=== PATIENT | male | born 1940 | race Caucasian/White ===

== ENCOUNTER 2018-09-22 20:06 | Inpatient (IN) | payer MEDICARE, OTHER ==
[~2018-09-22] VITALS: Ht 175.3 cm; Wt 92.5 kg
[2018-09-22] MEDS ORDERED: CLOP75TA2 PO (20:34)
[2018-09-22] MEDS ORDERED: ASPI1TAB PO (20:34)
[2018-09-22] MEDS ORDERED: SPIR-10 PO (20:34)
[2018-09-22] MEDS ORDERED: TORS20TA2 PO (20:34)
[2018-09-22] MEDS ORDERED: ATOR80TA59 PO (20:34)
[2018-09-22] MEDS ORDERED: NITR0.4S14 SL (20:34)
[2018-09-22 21:32] LABS: HEMATOCRIT 40.7 % (42.0-52.0); MEAN CORPUSCULAR HEMOGLOBIN 29.7 pg (27.0-33.0); MEAN CORPUSCULAR HGB CONC 31.9 g/dl (32.0-36.5); MEAN CORPUSCULAR VOLUME 93.1 fl (80.0-96.0); PLATELET COUNT, AUTOMATED 338 10^3/uL (150-450); RED BLOOD COUNT 4.37 10^6/uL (4.30-6.10); WHITE BLOOD COUNT 9.3 10^3/uL (4.0-10.0)
[2018-09-22 21:55] LABS: BLOOD UREA NITROGEN 16 MG/DL (7-18); CALCIUM LEVEL 8.2 MG/DL (8.8-10.2); CARBON DIOXIDE LEVEL 30 MEQ/L (21-32); CHLORIDE LEVEL 99 MEQ/L (98-107); CREATININE FOR GFR 1.08 MG/DL (0.70-1.30); GLOMERULAR FILTRATION RATE > 60.0 (>42); GLUCOSE, FASTING 134 MG/DL (70-100); POTASSIUM SERUM 4.2 MEQ/L (3.5-5.1); SODIUM LEVEL 135 MEQ/L (136-145)
--- NOTE | 2018-09-22 21:55 | REPVR ---
EXAM: US Duplex Right Lower Extremity Veins, Limited EXAM DATE/TIME: 09/22/2018 9:26 PM CLINICAL HISTORY: 78 years old, male; Pain; Leg, upper; Right; Additional info: Swelling TECHNIQUE: Real-time Duplex ultrasound of the Right Lower Extremity with 2-D arce scale, color Doppler flow and spectral waveform analysis. Limited exam was focused on the right lower extremity veins. COMPARISON: No relevant prior studies available. FINDINGS: Right deep veins: Unremarkable. The common femoral, femoral, proximal profunda femoral and popliteal veins are patent without thrombus. Normal Doppler waveforms. Normal compressibility and/or augmentation response. Right superficial veins: Unremarkable. Saphenofemoral junction is patent without thrombus. Soft tissues: Unremarkable. IMPRESSION: No sonographic evidence of deep vein thrombosis. Electronically signed by: Vidal Emery On 09/22/2018 21:55:27 PM
[2018-09-22] MEDS ORDERED: NS 1,000 ML IV SCH ×2 (22:45→23:30)
[2018-09-22] MEDS ORDERED: PIPERACILLIN/TAZOBACTAM SOD 3.375 GM in D5W MINI-BAG PLUS 50 ML IV ONE (22:45)
[2018-09-22] MEDS ORDERED: NITROGLYCERIN 0.4 MG SUBL TABLET SL PRN (23:15)
[2018-09-22] MEDS ORDERED: ACETAMINOPHEN TAB 650MG DOSE (2X325MG) PO PRN (23:15)
[2018-09-22] MEDS ORDERED: PROBCAP4 PO (23:32)
--- NOTE | 2018-09-22 23:57 | HPEPDOC ---
[facility] Medical History & Physical Date of Admission Sep 22, 2018 Other Provider Dictating/admitting: Charmaine Marin M.D. Attending Physician: SHAMAR GRIMM MD History and Physical CHIEF COMPLAINT: Right lower extremity nonhealing ulcer and pain 3 weeks HISTORY OF PRESENT ILLNESS: Patient is 78-year-old man with history of hypertension, active tobacco use, CHF, seasonal allergies. Chronic venous insufficiency. Patient gives a history of having fallen over 4 weeks ago with resultant blister on his right inner thigh. However, blisters later turned into also and has remained nonhealing draining serosanguineous fluid and now he complains that the pain is unbearable with pain intensity 6-8/10. He denies any nausea, vomiting, no fever, no chills, no palpitations, no shortness of breath or chest pain, no coughing. No undue swelling of his lower extremities. No recent long distance travel. Vascular ultrasound ruled out DVT. PAST MEDICAL HISTORY: Per HPI PAST SURGICAL HISTORY: 1. Repair of fractured vertebrae. 2. Declines abdominal hernia repair. SOCIAL HISTORY: Smokes about 5-6 sticks of cigarettes per day for over 40 years. Indulges in occasional use of alcohol. FAMILY HISTORY: Father: , unknown course Mother: , unknown course Denies ischemic heart disease or diabetes in the rest of the family ALLERGIES: Please see below. REVIEW OF SYSTEMS: He denies any nausea, vomiting, no fever, no chills, no palpitations, no shortness of breath or chest pain, no coughing. No undue swelling of his lower extremities. No recent long distance travel. Other systems reviewed, -10 point review of system was done. HOME MEDICATIONS: Please see below. PHYSICAL EXAMINATION: VITAL SIGNS: Temperature 97.4, pulse 108, respiratory rate 18, blood pressure 174/64, pulse oximetry 94% on room air. GENERAL APPEARANCE: Elderly man, lying calmly in bed, not in any apparent distress. He is not pale, anicteric and afebrile HEENT: Atraumatic. Neck: Supple. LUNGS: Clear to auscultation bilaterally. CARDIOVASCULAR: S1 and 2 heard, no murmurs, rubs or gallops. ABDOMEN: Obese, soft, not tender, not distended. Bowel sounds normoactive. MUSCULOSKELETAL: Apparently within normal limits. EXTREMITIES: Chronic skin changes noted. Right thigh ulcer with escar. Ulcer measures 3cm x3cm. No pedal edema, 2+ bilateral pedal pulses noted. Range of motion to Right lower extremity reduced due to pain. NEUROLOGICAL: Awake, alert, oriented 3. PSYCHIATRIC: Normal affect LABORATORY DATA: See below. IMAGING: Vascular ultrasonogram: No DVT. MICROBIOLOGY: Please see below. ASSESSMENT: 78-year-old man with hypertension, active tobacco use, CHF comes in with 3 weeks duration of nonhealing ulcer and pain to the right inner thigh. DIAGNOSES: Right inner thigh cellulitis . PLAN: 1. I will admit this patient to medical floor with remote telemetry under care of Dr Grimm. 2. Cellulitis. Will continue IV linezolid 600 mg twice a day follow CBC. Follow blood cultures. Patient will also benefit from debridement have been examining the wound. I will place consult to vascular surgery for further surgical evaluation. 3. Patient appears a little dry. We'll give IV normal saline to run at 50 mils per hour for the next 8 hours. Follow BMP in the morning. We'll hold diuretics today and restart diuretics tomorrow. 4. Continue outpatient medications. 5. DVT prophylaxis with TEDs. 6. Further management will be per patient's clinical course. Vital Signs Vital Signs Date Time Temp Pulse Resp B/P (MAP) Pulse Ox O2 Delivery O2 Flow Rate FiO2 09/22/18 23:32 99.2 94 12 134/70 (91) 95 Room Air Laboratory Data Labs 24H Laboratory Tests 2 09/22/18 21:06: Nucleated Red Blood Cells % (auto) 0.0, Anion Gap 6L, Glomerular Filtration Rate > 60.0, Blood Urea Nitrogen 16, Creatinine 1.08, Sodium Level 135L, Potassium Level 4.2, Chloride Level 99, Carbon Dioxide Level 30, Calcium Level 8.2L CBC/BMP Laboratory Tests 09/22/18 21:06 Red Blood Count 4.37, Mean Corpuscular Volume 93.1, Mean Corpuscular Hemoglobin 29.7, Mean Corpuscular Hemoglobin Concent 31.9 L, Red Cell Distribution Width 14.2, Calcium Level 8.2 L Microbiology Microbiology 09/22/18 Blood Culture, Received Pending 09/22/18 Wound Culture, Received Pending Home Medications Scheduled Aspirin (Aspirin 81) 81 Mg Tab, 81 MG PO QPM TAKES AT 1730 Atorvastatin Calcium (Atorvastatin Calcium) 80 Mg Tab, 80 MG PO QHS TAKES AT 1730 Clopidogrel Bisulfate (Clopidogrel) 75 Mg Tab, 75 MG PO DAILY Lactobacillus Acidophilus (Probiotic) 1 Cap Cap, 1 CAP PO BID Nitroglycerin (Nitroglycerin) 0.4 Mg Sub, 0.4 MG SL NITRO Spironolactone (Spironolactone) 25 Mg Tab, 25 MG PO DAILY Torsemide (Torsemide) 20 Mg Tab, 10 MG PO DAILY Allergies Coded Allergies: No Known Drug Allergy (Unverified Allergy, Unknown, NONE, 11/13/12) VELMA LLAMAS MD Sep 22, 2018 23:46
[2018-09-23 00:35] VITALS: BP 146/76
[2018-09-23] MEDS: LINEZOLID 600 MG in APPROPRIATE DILUENT 1 EA IV SCH ×3 (01:45→21:57)
[2018-09-23 06:00] VITALS: BP 112/64
[2018-09-23 07:43] LABS: HEMATOCRIT 33.4 % (42.0-52.0); MEAN CORPUSCULAR HEMOGLOBIN 29.9 pg (27.0-33.0); MEAN CORPUSCULAR VOLUME 93.3 fl (80.0-96.0); PLATELET COUNT, AUTOMATED 290 10^3/uL (150-450); RED BLOOD COUNT 3.58 10^6/uL (4.30-6.10); WHITE BLOOD COUNT 7.8 10^3/uL (4.0-10.0)
[2018-09-23 07:48] LABS: HEMOGLOBIN 10.7 g/dl (13.5-17.5)
[2018-09-23 07:59] LABS: BLOOD UREA NITROGEN 15 MG/DL (7-18); CALCIUM LEVEL 7.7 MG/DL (8.8-10.2); CARBON DIOXIDE LEVEL 29 MEQ/L (21-32); CHLORIDE LEVEL 102 MEQ/L (98-107); CREATININE FOR GFR 0.76 MG/DL (0.70-1.30); GLOMERULAR FILTRATION RATE > 60.0 (>42); GLUCOSE, FASTING 101 MG/DL (70-100); POTASSIUM SERUM 3.9 MEQ/L (3.5-5.1); SODIUM LEVEL 138 MEQ/L (136-145)
[2018-09-23 08:02] LABS: ALBUMIN 2.4 GM/DL (3.2-5.2); BILIRUBIN,DIRECT 0.2 MG/DL (0.0-0.2); BILIRUBIN,TOTAL 0.4 MG/DL (0.2-1.0); TOTAL PROTEIN 6.2 GM/DL (6.4-8.2)
[2018-09-23] MEDS: CLOPIDOGREL 75 MG TAB PO SCH (08:45)
--- NOTE | 2018-09-23 10:45 | CR ---
DATE OF CONSULTATION: 09/23/2018 REASON FOR CONSULTATION: Hematoma right leg with pain and discomfort. HISTORY OF PRESENT ILLNESS: The patient is a 78-year-old male who had a fall 3 weeks ago. He went to [place] for treatment and essentially has had some drainage from the hematoma / blister that occurred on his right thigh over the last several days and came back in with swelling, pain, discomfort in this area. He has a followup appointment in the wound clinic but has not been scheduled for that yet. PAST MEDICAL HISTORY: His past medical history is significant for history of smoking, history of back fracture, history of hypercholesterolemia, history of constipation, history of congestive heart failure, hypertension, history of venous insufficiency, history of hyperlipidemia, history of vitamin D deficiency. MEDICATIONS: Include: - aspirin - atorvastatin - Plavix - probiotic - nitroglycerin - spirolactone - torsemide PHYSICAL EXAMINATION: Physical exam reveals 78-year-old male who looks older than stated age. HEENT is unremarkable. Neck: Supple without adenopathy. Lungs are diminished bilaterally. Heart is regular with few irregular beats. Abdomen is soft, nontender. Extremities: Right lower extremity reveals 2+ pitting edema of lower extremity. He has some mild are reactive erythema around the knee and the upper thigh. He has eschar on his medial leg that is partially avulsed. I placed some peroxide on this and a great deal of the blood / hematoma evacuated with just minimal pressure in the thigh area. IMPRESSION AND PLAN: The patient has a open wound on his right thigh. I anticipate with gentle debridement associated with peroxide should be enough to avoid significant bleeding associated with his anticoagulation. I would recommend avoiding mechanical debridement at this point, which may result in significant bleeding from the site. We may start wet to dry depending on how he does with the dressing changes over the next couple of days. Recommend continue with leg elevation, he can ambulate but otherwise would have him elevate his leg as much as possible. Anticipate that he should be able to be discharged once family is comfortable with dressing changes and his pain is under better control.
[2018-09-23] MEDS: NICOTINE 14 MG/24 HR TRANSDERMAL TD SCH (11:58)
--- NOTE | 2018-09-23 12:59 | IPNPDOC ---
Date Seen The patient was seen on 09/23/18. Progress Note SUBJECTIVE: Patient Complains of pain on his right thigh associated with his ulcer but otherwise he denies fevers chills chest pain or shortness of breath OBJECTIVE PHYSICAL EXAMINATION: VITAL SIGNS: Please see below. GENERAL: Elderly man lying in bed he does not appear to be in any acute distress HEENT:. Cranial nerves 2 through 12 are grossly intact CARDIOVASCULAR: S1 S2 regular. RESPIRATORY: Clear to auscultation bilaterally. ABDOMINAL: Bowel sounds present abdomen is soft and obese EXTREMITIES: The right medial thigh has a 5 cm dark necrotic area ulceration with mobile eschar there is some bloody discharge LABORATORY DATA, IMAGING STUDIES, MICROBIOLOGY: Please see below. DVT prophylaxis ordered?: Teds and sequentials early ambulation ASSESSMENT AND PLAN: This is a 78-year-old man with right thigh ulcer. PROBLEMS: 1. Right thigh ulcer: The patient was admitted with concern for possible superimposed cellulitic infection my suspicion for this is much lower is started on antibiotics we'll follow his cultures and narrow antibiotic spectrum and discontinue as indicated. Given the eschar suspect he would benefit from cleansing with possible debridement as such her receptive Dr. Osullivan of general surgery to evaluate the patient for wound care management as suspect the patient will benefit greatly from an outpatient follow-up with Dr. Benavidez as well which the family have already arranged. I'll provide him with by mouth pain medication and have him work with physical therapy. His wound appears to be secondary to trauma 2. Congestive heart failure: Chronic appears to be quite euvolemic at this time his home diuretics of placed on hold he didn't try some gentle hydration CONTINUE fluids as he is tolerating by mouth just fine at this time. 3. Peripheral arterial disease: He is reportedly had peripheral arterial bypass his past he is on aspirin Plavix and statin. 4. Tobacco abuse: Cessation counseling provided he has been provided with a nicotine patch DISPOSITION: Pending PT clearance pain control and general surgery consultation. VS, I&O, 24H, Fishbone Vital Signs/I&O Vital Signs Date Time Temp Pulse Resp B/P (MAP) Pulse Ox O2 Delivery O2 Flow Rate FiO2 09/23/18 06:00 97.8 78 15 112/64 (80) 96 09/22/18 23:32 Room Air I&O- Last 24 Hours up to 6 AM 09/23/18 06:00 Intake Total 475 ml Output Total 0 ml Balance 475 ml Laboratory Data 24H LABS Laboratory Tests 2 09/22/18 21:06: Nucleated Red Blood Cells % (auto) 0.0, Anion Gap 6L, Glomerular Filtration Rate > 60.0, Blood Urea Nitrogen 16, Creatinine 1.08, Sodium Level 135L, Potassium Level 4.2, Chloride Level 99, Carbon Dioxide Level 30, Calcium Level 8.2L 09/23/18 07:25: Nucleated Red Blood Cells % (auto) 0.0, Anion Gap 7L, Glomerular Filtration Rate > 60.0, Blood Urea Nitrogen 15, Creatinine 0.76, Sodium Level 138, Potassium Level 3.9, Chloride Level 102, Carbon Dioxide Level 29, Calcium Level 7.7L, Aspartate Amino Transf (AST/SGOT) 10, Alanine Aminotransferase (ALT/SGPT) 11L, Alkaline Phosphatase 81, Total Bilirubin 0.4, Direct Bilirubin 0.2, Total Protein 6.2L, Albumin 2.4L, Albumin/Globulin Ratio 0.63L CBC/BMP Laboratory Tests 09/22/18 21:06 Red Blood Count 4.37, Mean Corpuscular Volume 93.1, Mean Corpuscular Hemoglobin 29.7, Mean Corpuscular Hemoglobin Concent 31.9 L, Red Cell Distribution Width 14.2, Calcium Level 8.2 L 09/23/18 07:25 Red Blood Count 3.58 L, Mean Corpuscular Volume 93.3, Mean Corpuscular Hemoglobin 29.9, Mean Corpuscular Hemoglobin Concent 32.0, Red Cell Distribution Width 14.2, Calcium Level 7.7 L Microbiology Microbiology 09/22/18 Blood Culture, Received Pending 09/22/18 Wound Culture, Received Pending SHAMAR GRIMM MD Sep 23, 2018 12:59
[2018-09-23] MEDS ORDERED: PERCOCET 5MG/325MG TAB PO PRN ×2 (13:00)
[2018-09-23 14:00] VITALS: BP 120/71
[2018-09-23] MEDS: ATORVASTATIN 20 MG TAB PO SCH (21:56)
[2018-09-23] MEDS: ASPIRIN 81 MG ENTERIC TAB PO SCH (21:56)
[2018-09-23 22:00] VITALS: BP 121/73
[2018-09-24 06:00] VITALS: BP 120/70
[2018-09-24] MEDS: CLOPIDOGREL 75 MG TAB PO SCH (08:11)
[2018-09-24] MEDS: NICOTINE 14 MG/24 HR TRANSDERMAL TD SCH (08:13)
[2018-09-24] MEDS: LINEZOLID 600 MG in APPROPRIATE DILUENT 1 EA IV SCH ×2 (10:47→22:26)
--- NOTE | 2018-09-24 13:06 | IPNPDOC ---
Date Seen The patient was seen on 09/24/18. Progress Note SUBJECTIVE: Patient tellsme that his pain is better controlled at this time. He has no complaints, no fevers or chills. C OBJECTIVE PHYSICAL EXAMINATION: VITAL SIGNS: Please see below. GENERAL: Elderly man lying in bed he does not appear to be in any acute distress he is accompanied by his 2 daughters HEENT:. Cranial nerves 2 through 12 are grossly intact CARDIOVASCULAR: S1 S2 regular. No additional heart sounds appreciated RESPIRATORY: Clear to auscultation bilaterally. ABDOMINAL: Bowel sounds present abdomen is soft and obese EXTREMITIES: The right medial thigh has Kerlix bandage which is clean dry and intact LABORATORY DATA, IMAGING STUDIES, MICROBIOLOGY: Please see below. DVT prophylaxis ordered?: Teds and sequentials early ambulation ASSESSMENT AND PLAN: This is a 78-year-old man with right thigh ulcer. PROBLEMS: 1. Right thigh ulcer: The patient was admitted with concern for possible s uperimposed cellulitic infection my suspicion for this is much lower is started on antibiotics so far cultures are negative. General surgery help greatly appreciated dressing changes and wound cleanser recommendations have been made I suspect that the patient would benefit from home health at home and the family is learning how to do dressing changes. My plan would be to send him home tomorrow with services in follow-up with wound care on the outpatient setting for continued care 2. Congestive heart failure: Chronic appears to be quite euvolemic at this time his home diuretics of placed on hold but I feel the could be resumed upon discharge as early as tomorrow 3. Peripheral arterial disease: He is reportedly had peripheral arterial bypass his past he is on aspirin Plavix and statin. 4. Tobacco abuse: Cessation counseling provided he has been provided with a nicotine patch DISPOSITION: Pending PT clearance pain control and arrangement of home services possibly tomorrow VS, I&O, 24H, Fishbone Vital Signs/I&O Vital Signs Date Time Temp Pulse Resp B/P (MAP) Pulse Ox O2 Delivery O2 Flow Rate FiO2 09/24/18 06:00 97.6 84 16 120/70 (87) 94 09/22/18 23:32 Room Air I&O- Last 24 Hours up to 6 AM 09/24/18 06:00 Intake Total 1480 ml Output Total 0 ml Balance 1480 ml Laboratory Data Microbiology Microbiology 09/22/18 Blood Culture - Preliminary, Resulted No growth after 24 hours . All specim... 09/22/18 Wound Culture, Received Pending SHAMAR GRIMM MD Sep 24, 2018 13:06
[2018-09-24 14:00] VITALS: BP 140/89
[2018-09-24] MEDS: ASPIRIN 81 MG ENTERIC TAB PO SCH (20:40)
[2018-09-24] MEDS: ATORVASTATIN 20 MG TAB PO SCH (20:40)
[2018-09-24 22:00] VITALS: BP 134/72
[2018-09-25 06:00] VITALS: BP 126/64
[2018-09-25 08:04] LABS: HEMATOCRIT 34.3 % (42.0-52.0); HEMOGLOBIN 10.9 g/dl (13.5-17.5); MEAN CORPUSCULAR HEMOGLOBIN 29.7 pg (27.0-33.0); MEAN CORPUSCULAR HGB CONC 31.8 g/dl (32.0-36.5); MEAN CORPUSCULAR VOLUME 93.5 fl (80.0-96.0); PLATELET COUNT, AUTOMATED 318 10^3/uL (150-450); RED BLOOD COUNT 3.67 10^6/uL (4.30-6.10)
--- NOTE | 2018-09-25 08:11 | IPN ---
DATE: 09/24/2018 The patient seems to be making some good progress, draining a fair bit from his right leg incision, still was afebrile and the reactive erythema associated with the significant edema that he had in his right leg is significantly improving. He states that the pain is also improved. On his physical exam, the edema in the leg has improved and the drainage has improved. He still has some old blood clot within the wound itself, but otherwise seems to have decreased swelling and decreased drainage since yesterday. IMPRESSION AND PLAN: The patient is doing well with the current dressing changes. From my standpoint, he should be able to go home on dressing changes and see the wound clinic as an outpatient with additional recommendations there. Specifically, continue with irrigation of the wound with some peroxide until it clears up the rest of the blood clot is reasonable. Otherwise, a pulse lavage is reasonable to do as well here if he is around early next week. Then we can have physical therapy (PT) start with that as well. Otherwise, continue with leg elevation and dressing changes is reasonable thus far.
[2018-09-25 08:21] LABS: BLOOD UREA NITROGEN 7 MG/DL (7-18); CALCIUM LEVEL 8.1 MG/DL (8.8-10.2); CARBON DIOXIDE LEVEL 28 MEQ/L (21-32); CHLORIDE LEVEL 103 MEQ/L (98-107); GLOMERULAR FILTRATION RATE > 60.0 (>42); GLUCOSE, FASTING 107 MG/DL (70-100); POTASSIUM SERUM 3.9 MEQ/L (3.5-5.1); SODIUM LEVEL 135 MEQ/L (136-145)
[2018-09-25] MEDS: CLOPIDOGREL 75 MG TAB PO SCH (08:26)
[2018-09-25] MEDS: NICOTINE 14 MG/24 HR TRANSDERMAL TD SCH (08:27)
[2018-09-25] MEDS ORDERED: PERCOCET PO (11:31)
[2018-09-25] MEDS ORDERED: AMPI500C9 PO (11:32)
[2018-09-25] MEDS: LINEZOLID 600 MG in APPROPRIATE DILUENT 1 EA IV SCH (11:37)
[2018-09-25 14:00] VITALS: BP 138/68
--- NOTE | 2018-09-26 19:56 | DSES ---
DATE OF ADMISSION: 09/22/2018 DATE OF DISCHARGE: 09/25/2018 SUBJECTIVE: The patient tells me that he is feeling well today. He has no specific complaints at this time. OBJECTIVE: VITAL SIGNS: Temperature 98.8, pulse 84, respiratory rate 18, blood pressure 126/64, oxygen saturation 93% on room air. GENERAL: He is a pleasant, elderly, man resting comfortably in bed. He does not appear to be in any acute distress whatsoever. NEUROLOGIC: Cranial nerves II-XII are grossly intact. HEENT: He has moist mucous membranes. No elevation of central venous pressure (CVP). CARDIOVASCULAR: S1, S2, regular. RESPIRATORY: Clear. ABDOMEN: Benign. EXTREMITIES: He has a Kerlix over his leg which is clean, dry and intact. LABORATORY STUDIES: WBC 6.0, hemoglobin 10.9, platelet count 318. Chemistry Panel: Sodium 135, potassium 3.9, chloride 103, bicarbonate 28, BUN 7, creatinine 0.7. Microbiology: Wound culture returned positive for E. coli and Enterococcus sensitive to ampicillin. He did have a duplex ultrasound during his stay that was negative for any DVT. DISCHARGE DIAGNOSIS: Right thigh wound. SECONDARY DIAGNOSES: 1. Cellulitis. 2. Congestive heart failure. 3. Peripheral arterial disease. 4. Tobacco abuse. HOSPITAL COURSE: The patient is a 78-year-old man who injured his thigh from trauma after a fall several weeks earlier but then gradually developed an ulcer in the area until it turned black and starting bleeding, progressively worsening. He had attempted to get established with wound care outside of the hospital. However, he could not get an appointment soon enough which eventually prompted him to present to the emergency room. He was seen in consultation by Dr. Osullivan who made dressing change suggestions but recommended no debridement despite the visible eschar. The patient remained stable. He was on antibiotics. His cultures were as outlined above. ASSESSMENT AND PLAN: A 78-year-old man with right thigh ulcer with superimposed cellulitis. 1. Right thigh ulcer with superimposed cellulitis. The cellulitis is minimum. He does appear to be doing quite well with dressing changes. He had been provided with pain medication. His family has been trained on how to do dressing changes at home. We have established home care for him to help with dressing changes at home. He is setup in the wound clinic in [place] as well as in [place]. After that, he is medically for discharge home. He is at his functional baseline. His clinical syndrome is improving. 2. Congestive heart failure. He was euvolemic throughout his stay. His home diuretics were placed on hold but we will resume these upon discharge. Blood pressure was well controlled. 3. Peripheral arterial disease. He has had a history of bypass in the past. He was continued on his aspirin, Plavix and statin. 4. Tobacco abuse. Cessation counseling provided. He was provided with a nicotine patch while in the hospital. DISPOSITION: He has been cleared by physical therapy. He is to followup with his primary care provider (PCP) within seven days, followup with the wound clinic in [place] tomorrow. His activity is as tolerated. His diet is as prior to admission. Dressing changes are as per Dr. Osullivan's recommendations. He is to return to the emergency room (ER) if symptoms worsen. MEDICATIONS AT THE TIME OF DISCHARGE: - ampicillin 100 mg three times a day for seven days - Percocet one tablet every four hours as needed for mild or moderate pain - aspirin 81 mg every evening - atorvastatin 80 mg at bedtime - Plavix 75 mg daily - probiotic one capsule twice a day - nitroglycerin 0.4 mg sublingually every five minutes as needed for chest pain - spironolactone 25 mg daily - torsemide 10 mg daily Greater than 30 minutes spent organizing disposition.
== END 2018-09-25 14:21 | disposition home health service (06) | DRG 593 ==
LOC: M ED 20:06 → M ED INP 23:08 → M MSPAV 09-23 00:31
PROVIDERS: ADMIT Hospitalist; ATTEND Internal Medicine
DX: L97.119 Non-pressure chronic ulcer of right thigh with unspecified severity (principal); L03.115 Cellulitis of right lower limb; I50.9 Heart failure, unspecified; I73.9 Peripheral vascular disease, unspecified; F17.210 Nicotine dependence, cigarettes, uncomplicated; Z79.899 Other long term (current) drug therapy; Z79.82 Long term (current) use of aspirin; E78.00 Pure hypercholesterolemia, unspecified; I11.0 Hypertensive heart disease with heart failure; E55.9 Vitamin D deficiency, unspecified